=== PATIENT | male | born 2000 | race African-American/Black ===

== ENCOUNTER 2025-09-17 19:35 | Observation (INO) | payer SELFPAY ==
[~2025-09-17 19:35] MED LIST: Iopamidol 300 61% 100 ML VIAL FS ONE
[2025-09-17] MEDS ORDERED: Ketorolac Tromethamine 30 MG (1 mL) VIAL ONE (21:02)
[2025-09-17] MEDS ORDERED: Ondansetron PF 4 MG/2 ML Vial ONE (21:02)
[2025-09-17 21:30] LABS: Glucose, Urine (Dipstick) Normal (Negative); Protein, Urine (Dipstick) 30 mg/dl (Neg-Trace); Specific Gravity, Urine 1.015 (1.005-1.030)
[2025-09-17 21:43] LABS: ALT (SGPT) 8 U/L (Less than 45); AST (SGOT) 19 U/L (11-34); Albumin 4.6 g/dL (3.1-4.5); Alkaline Phosphatase 43 U/L (40-110); Anion Gap 13 mmol/L (10-20); BUN (Urea Nitrogen) 14 mg/dL (8.9-20.6); Bilirubin, Total 0.4 mg/dL (0.3-1.2); Calc. Creatinine Clearance 0 mL/min (70-130); Calcium 9.3 mg/dL (7.8-10.44); Carbon Dioxide 25 mmol/L (22-29); Chloride 103 mmol/L (98-107); Globulin 2.8 g/dL (2.4-3.5); Glucose 107 mg/dL (70-105); Lipase 8 U/L (8-78); Potassium 3.9 mmol/L (3.5-5.1); Sodium 137 mmol/L (136-145)
[2025-09-17 21:45] LABS: Leukocyte 25 (Negative)
[2025-09-17 21:46] LABS: Bacteria/HPF 1+ HPF (None Seen); CAUTI Indications for Culture Pelvic or flank pain; RBC/HPF 0-3 HPF (0-3)
[2025-09-17 21:48] LABS: Urine Culture Reflex No No
[2025-09-17 21:57] LABS: #Basophils 0.03 10x3/uL (0.0-0.2); #Eosinophils Less than 0.03 10x3/uL (0.0-0.5); #Monocytes 1.27 10x3/uL (0.0-1.1); #Neutrophils 14.32 10x3/uL (1.5-8.4); %Basophils 0.2 % (0.0-2.0); %Eosinophils 0.1 % (0.0-6.0); %Lymphocytes 9.1 % (18.0-47.0); %Monocytes 7.3 % (0.0-10.0); %Neutrophils 83.0 % (40.0-75.0); Hematocrit 32.3 % (38.8-50.0); Hemoglobin 10.5 g/dL (13.5-17.5); Mean Corpuscular Hemoglobin 29.1 pg (27.0-33.0); Mean Corpuscular Volume 89.5 fL (81.2-95.1); Platelet Count 217 10x3/uL (150-450); Red Blood Cell (RBC) Count 3.61 10x6/uL (4.32-5.72); White Blood Cell (WBC) Count 17.28 10x3/uL (3.5-10.5)
[2025-09-18 08:35] LABS: #Basophils 0.04 10x3/uL (0.0-0.2); #Eosinophils 0.06 10x3/uL (0.0-0.5); #Monocytes 1.13 10x3/uL (0.0-1.1); #Neutrophils 8.70 10x3/uL (1.5-8.4); %Basophils 0.3 % (0.0-2.0); %Eosinophils 0.5 % (0.0-6.0); %Lymphocytes 15.2 % (18.0-47.0); %Monocytes 9.6 % (0.0-10.0); %Neutrophils 74.1 % (40.0-75.0); Hematocrit 26.4 % (38.8-50.0); Hemoglobin 8.8 g/dL (13.5-17.5); Mean Corpuscular Hemoglobin 29.2 pg (27.0-33.0); Mean Corpuscular Volume 87.7 fL (81.2-95.1); Platelet Count 179 10x3/uL (150-450); Red Blood Cell (RBC) Count 3.01 10x6/uL (4.32-5.72); White Blood Cell (WBC) Count 11.76 10x3/uL (3.5-10.5)
[2025-09-18 08:49] LABS: Anion Gap 11 mmol/L (10-20); BUN (Urea Nitrogen) 11 mg/dL (8.9-20.6); Calc. Creatinine Clearance 131 mL/min (70-130); Calcium 8.6 mg/dL (7.8-10.44); Carbon Dioxide 23 mmol/L (22-29); Chloride 107 mmol/L (98-107); Glucose 95 mg/dL (70-105); Potassium 3.9 mmol/L (3.5-5.1); Sodium 137 mmol/L (136-145)
[2025-09-18] MEDS ORDERED: Dextrose 50% Abboject 50 ML SYRINGE SLOW IVP PRN (11:12)
[2025-09-18] MEDS ORDERED: Glucagon 1 MG/ML KIT IM PRN (11:12)
[2025-09-18 11:34] LABS: Hematocrit 25.3 % (38.8-50.0); Hemoglobin 8.4 g/dL (13.5-17.5)
[2025-09-18 12:53] VITALS: BMI 25.8
[2025-09-18] MEDS: Ketorolac Tromethamine 30 MG (1 mL) VIAL IVP PRN (13:29)
[2025-09-18 17:35] LABS: Hematocrit 26.0 % (38.8-50.0); Hemoglobin 8.7 g/dL (13.5-17.5)
[2025-09-18 23:37] LABS: Hematocrit 26.7 % (38.8-50.0); Hemoglobin 8.8 g/dL (13.5-17.5)
[2025-09-19 04:33] LABS: #Basophils 0.03 10x3/uL (0.0-0.2); #Eosinophils 0.11 10x3/uL (0.0-0.5); #Monocytes 1.00 10x3/uL (0.0-1.1); #Neutrophils 6.15 10x3/uL (1.5-8.4); %Basophils 0.3 % (0.0-2.0); %Eosinophils 1.2 % (0.0-6.0); %Lymphocytes 22.5 % (18.0-47.0); %Monocytes 10.6 % (0.0-10.0); %Neutrophils 65.0 % (40.0-75.0); Hematocrit 26.8 % (38.8-50.0); Hemoglobin 8.7 g/dL (13.5-17.5); Mean Corpuscular Hemoglobin 29.1 pg (27.0-33.0); Mean Corpuscular Volume 89.6 fL (81.2-95.1); Platelet Count 171 10x3/uL (150-450); Red Blood Cell (RBC) Count 2.99 10x6/uL (4.32-5.72); White Blood Cell (WBC) Count 9.46 10x3/uL (3.5-10.5)
[2025-09-19 05:25] LABS: Hematocrit 26.8 % (38.8-50.0); Hemoglobin 8.7 g/dL (13.5-17.5)
[2025-09-19] MEDS ORDERED: FLU (Fluarix Triv) 25-26 (6MOS UP)/PF 45 MCG/0.5 ML Syringe IM ONE (09:00)
[2025-09-19 11:35] VITALS: BP 112/62; TEMP 97.9
== END 2025-09-19 11:30 | disposition home or self-care (01) ==
LOC: CSHERS 19:35 → CSHERHOLD 09-18 02:16 → CSHTELE 09-18 12:38
PROVIDERS: ADMIT Surgery; ATTEND Surgery
DX: D73.5 Infarction of spleen (principal); F17.200 Nicotine dependence, unspecified, uncomplicated
CPT/HCPCS: 36415; 74177; 80048; 80053; 81001; 83690; 85014; 85018; 85025; 86850; 86900; 86901; 87428; 93005; 93010; 94760; 96374; 96375; 96376; G0378; J1885; J2405; Q9967